=== PATIENT | female | born 2000 | race Caucasian/White ===

== ENCOUNTER 2024-07-03 19:08 | Emergency (ER) | payer SELFPAY ==
[2024-07-03 19:08] VITALS: BMI 19.7
[2024-07-03 19:09] VITALS: BP 138/74
--- NOTE | 2024-07-03 19:29 | ED.GENMED ---
History of Present Illness
General
Chief Complaint: Abdominal Pain
Source: patient
Exam Limitations: none
Time Seen by Provider: 07/03/24 19:16
History of Present Illness
History of Present Illness:
This is a 24 year old female that comes in with c/o vomiting. States that she has a history of Cyclical vomiting and she left her Zofran at home. States that she lives in [place] and was staying with her dad. States that she awoke this morning at
6am with vomiting. States that she has had chills, abd pain, nausea, vomiting, diarrhea. Denies any fever, chest pain, SOB, headache, dizziness, urinary burning.
Past History
Past History
ED Past Medical History: Other (Cyclical vomiting, IBS, PCOS)
ED Past Surgical History: Gynecological (Labiaplasty)
Social History
Tobacco: Non-smoker
Alcohol: Occasional
Personal: Single
Living: with family
Review of Systems
Review of Systems
All Other Systems: ROS reviewed and negative except as documented in HPI and ROS
Constitutional: Reports chills; Denies fever
EENT: Reports no symptoms
Respiratory: Reports no symptoms; Denies cough or trouble breathing
Cardiac: Reports no symptoms; Denies chest pain
ABD/GI: Reports abdominal pain, nausea, vomiting and diarrhea
: Reports no symptoms; Denies dysuria, frequency or urgency
Musculoskeletal: Reports no symptoms
Skin: Reports no symptoms
Neurological: Reports no symptoms; Denies dizzy or headache
Psychiatric: Reports no symptoms
Phy Exam
General Physical Exam
General Presentation: mild distress
General age: appears stated age
General Skin: warm and dry
General Habitus: normal
General Mental: alert
General Hydration: dry mucous membranes
ENT Exam
ENT Exam: TM's normal, pharynx normal and neck supple
Eye Exam
Eye Exam: EOMI
Cardiovascular Exam
Cardiovascular Exam: regular rate/rhythm, no edema, no murmur and normal peripheral pulses
Pulmonary Exam
Pulmonary Exam: lungs clear, no respiratory distress, no rales, chest non tender, no crackles, no rhonchi, no wheezing and no cough
Gastrointestinal Exam
Gastrointestinal Exam: soft, no organomegaly, no pulsatile mass, non distended, tender (Generalized tenderness with palpation) and other (Hypoactive bowel sounds)
Musculoskeletal Exam
Musculoskeletal Exam: full ROM and no edema
Skin Exam
Skin Exam: normal color, warm/dry, no rash and no petechia
Psychiatric Exam
Psychiatric Exam: normal mood/affect
Course
Orders/Labs/Results
Orders:
Orders
07/03/24 19:28
0.9% Sodium Chloride 1000 ml [Nss] 1,000 ml IV BOLUS
Diphenhydramine [Benadryl] 25 mg IV NOW STA
Ondansetron Injectable [Zofran] 4 mg IV NOW STA
Test Result ONCE
07/03/24 19:34
Comprehensive Metabolic Panel Urgent
HCG, Serum Qualitative Screen Urgent
07/03/24 19:35
Complete Blood Count/With Diff Urgent
07/03/24 19:59
CT Abd/Pel (IV only)-DH only Urgent
Reason For Exam: ABD PAIN
Iohexol [Omnipaque] See Protocol PO NOW STA
07/03/24 23:02
Amoxicillin 875 mg/Clav 125 mg [Augmentin 875 mg/125 mg] 1 tablet PO NOW STA
Ondansetron Injectable [Zofran] 4 mg IV NOW STA
07/03/24 23:22
Acetaminophen 1000MG/100Ml [Ofirmev] 1,000 mg in 100 ml IV ONCE
Acetaminophen IV Indication:: ED Narcotic Naive Pt-ONCE
Abnormal Lab Results
07/03/24 07/03/24
19:34 19:35
WBC 20.4 H 10^3/uL
(4.8-10.8)
MCH 31.8 H pg
(27.0-31.0)
Abs Immat Gran (auto) 0.2 H 10^3/uL
(0-0.05)
Absolute Neuts (auto) 18.8 H 10^3/uL
(1.4-6.5)
Absolute Lymphs (auto) 0.9 L 10^3/uL
(1.2-3.4)
Immature Gran % 0.8 H %
(0-0.5)
Neutrophils % 92.3 H %
(42.2-75.2)
Lymphocytes % 4.6 L %
(20.5-51.1)
Carbon Dioxide 12 L* mmol/L
(22-30)
Glucose 124 H mg/dl
(70-99)
Calcium 10.3 H mg/dl
(8.4-10.2)
AST 63 H U/L
(14-36)
ALT 51 H U/L
(0-35)
Total Protein 8.3 H g/dl
(6.3-8.2)
Albumin 5.2 H g/dl
(3.5-5.0)
07/03/24 19:35
07/03/24 19:34
Vital Signs
Initial and Last Documented VS:
Initial Vital Signs
Temp Pulse Resp BP Pulse Ox
98.1 F 97 18 138/74 98
07/03/24 19:09 07/03/24 19:09 07/03/24 19:09 07/03/24 19:09 07/03/24 19:09
Last Documented Vital Signs
Temp Pulse Resp BP Pulse Ox
98.4 F 77 16 140/96 100
07/03/24 22:00 07/03/24 23:12 07/03/24 23:12 07/03/24 23:12 11/28/24 23:12
MDM/Problems Addressed
Differential Diagnosis Includes:
Cyclical vomiting. Enteritis, Appendicitis
MDM/Problems Addressed:
This is a 24 year old female that comes in with c/o vomiting since 6am today. States that she awoke vomiting and that she has left her Zofran at home in [place]
Will check labs, Give IV fluids, Zofran and Benadryl.
Back into see patient. Explained that her white blood cell count is elevated. Patient is very tender with palpation of the abd. Will have patient try and drink contrast and if unable will get CT to c/o appendicitis.
Back into see patient. Explained that she has Colitis and that this may be a combination of her Cyclical vomiting and the Colitis. Will place patient on antibiotics for the next 7 days. Patient to follow up with the Gi specialist. Return with any
concerns.
Chronic conditions affecting care:
cyclical vomiting,
Acute Exacerbation and/or Progression of Chronic Illness:
cyclical vomitiing,
*Radiology
Radiology exam reviewed: radiology read reviewed (CT abd/pelvis night hawk- Mild wall thickening of the ascending colon, which may be due to underdistention or a mild colitis. No free air or free fluid. Appendix is normal. No free air or free fluid.
)
*Pulse Oximetry
Patient hypoxic: no
*EKG
Interpreted by ED Provider?: NA
Rate: EKG- N/A
*Manager Power Interpretation
Rate: Manager Power- N/A
*Critical Care Note
Total Time (30-74mins, 75-104mins- exclusive of procedures): Not Applicable
ED Attending Note
-
Portions of this chart may have been created with voice recognition software.� Occasional wrong word or��sound alike� substitutions may have occurred due to the inherent limitations of voice recognition software.
Discharge Plan
Departure
Patient Disposition: Home (Routine Discharge)
Date of Disposition: 07/03/24
Time of Disposition: 23:04
Patient with high blood pressure during this ER visit?: No
Condition: Good
Covid-19: Not Applicable
Discharge Problem:
Cyclical vomiting, Colitis
Instructions: Colitis (DC), Nausea and vomiting in adults
Prescriptions:
New
ondansetron 4 mg tablet,disintegrating
4 mg PO Q8H PRN (Reason: nausea and vomiting) Qty: 10 0RF
amoxicillin-pot clavulanate 875-125 mg tablet
1 tab PO BID Qty: 14 0RF
Referrals:
NONE,* [Family Provider] -
Stand Alone Forms: Return to Work
Activity Restrictions/Additional Instructions:
As discussed, your blood work shows that your white blood cell count is elevated. This may be a combination of CT findings of Colitis and the Cyclical vomiting. You have been given an antibiotic here and given a prescription for the next 7 days. You
have also been given a prescription for Zofran to help with any further nausea/vomiting. As long as you have diarrhea please stay away from milk and milk products as this is hard for the gut to digest and will keep the diarrhea going. Please
Chicken, rice and potatoes are easily digested. Follow up with your Gi specialist and your Family doctor for further evaluation. IF YOU HAVE ANY OTHER CONCERNS PLEASE RETURN TO THE EMERGENCY ROOM.
Interventions
Interventions:
*Risk Screen - Suicide Last Done: 07/03/24 19:09
*General Assessment Last Done: 07/03/24 19:09
*Neglect/Abuse Screening Last Done: 07/03/24 19:09
ED- Fall Risk Assessment Last Done: 07/03/24 20:19
*ED COVID-19 Vaccine History Last Done: 07/03/24 19:09
*Nursing Disposition Last Done: 07/04/24 00:05
JB-Aiauol-Vvrbnncjbv Assessment Last Done: 07/03/24 23:10
Discharge Date and Time
Discharge Date/Time: 07/04/24 00:05
Print Language: MONGOLIAN
[2024-07-03] MEDS: NSS 1000 IV ×2 (19:36→20:13)
[2024-07-03] MEDS: BENADRYL 25 MG IV (19:39)
[2024-07-03] MEDS: ZOFRAN 4 MG IV ×2 (19:40→23:15)
[2024-07-03 19:48] LABS: % Basophils 0.1 % (0-2); % Immature Granulocytes 0.8 % (0-0.5); % Lymphocytes 4.6 % (20.5-51.1); % Monocytes 2.2 % (1.7-9.3); % Neutrophils 92.3 % (42.2-75.2); Absolute Immature Granulocytes 0.2 10^3/uL (0-0.05); Absolute Lymphocytes 0.9 10^3/uL (1.2-3.4); Absolute Monocytes 0.4 10^3/uL (0.1-0.6); Absolute Neutrophils 18.8 10^3/uL (1.4-6.5); Hematocrit 42.4 % (37.0-47.0); Hemoglobin 14.7 g/dL (12.0-16.0); Mean Corp Hgb Conc. 34.7 g/dL (33.0-37.0); Mean Corpuscular Hgb 31.8 pg (27.0-31.0); Mean Corpuscular Volume 91.8 fL (81.0-99.0); Nucleated Red Blood Cells % 0 %; Platelet Count 371 10^3/uL (130-400); Red Blood Cell Count 4.62 10^6/uL (4.20-5.40); Red Cell Dist. Width 12.4 % (11.5-14.5); White Blood Cell Count 20.4 10^3/uL (4.8-10.8)
[2024-07-03 20:00] VITALS: BP 145/100
[2024-07-03] MEDS: OMNIPAQUE 50 ML PO (20:00)
[2024-07-03 20:14] LABS: HCG, Serum Qualitative Screen Negative
[2024-07-03 20:27] LABS: AST (SGOT) 63 U/L (14-36); Albumin 5.2 g/dl (3.5-5.0); Alkaline Phosphatase 56 U/L (38-126); Blood Urea Nitrogen 10 mg/dl (7-17); Calcium 10.3 mg/dl (8.4-10.2); Carbon Dioxide 12 mmol/L (22-30); Chloride 102 mmol/L (98-107); Estimated Creatinine Clearance 121 ml/min; Glucose 124 mg/dl (70-99); Potassium 4.2 mmol/L (3.5-5.1); Sodium 139 mmol/L (135-145); Total Bilirubin 1.3 mg/dl (0.2-1.3); Total Protein 8.3 g/dl (6.3-8.2); eGFR > 60.00
[2024-07-03 20:37] LABS: ALT (SGPT) 51 U/L (0-35)
[2024-07-03 22:00] VITALS: BP 122/78
[2024-07-03 23:12] VITALS: BP 140/96
[2024-07-03] MEDS: AUGMENTIN 875 MG/125 MG 1 TABLET PO (23:14)
[2024-07-03] MEDS: OFIRMEV 100 IV (23:25)
== END 2024-07-04 00:05 | disposition home or self-care (01) ==
LOC: EMR 19:08
PROVIDERS: Clinical Nurse Specialist Family Health; EMERGENCY PHYSICIAN Emergency Medicine
DX: R11.15 Cyclical vomiting syndrome unrelated to migraine (principal); K52.9 Noninfective gastroenteritis and colitis, unspecified; E28.2 Polycystic ovarian syndrome
CPT/HCPCS: 99284; 96374; 96375; 96376; 74177; 80053; 84703; 85025; Q9967